=== PATIENT | female | born 1935 | race Caucasian/White ===

== ENCOUNTER 2017-07-26 08:31 | Observation (INO) | payer MEDICARE ==
[2017-07-26] VITALS (7 sets, daily range): BP systolic 119–138; BP diastolic 60–65; PULSE 65–86; RESP 16; TEMP 97.5–98.2; O2SAT 98–100
[~2017-07-26] VITALS: Ht 160 cm; Wt 48.0 kg
[2017-07-26] MEDS ORDERED: L-THPOW (09:12)
[2017-07-26] MEDS ORDERED: LEVO88TA2 PO (09:12)
[2017-07-26] MEDS ORDERED: ISTA0.5S EACH EYE (09:16)
[2017-07-26] MEDS ORDERED: CILO100T PO (09:16)
[2017-07-26] MEDS ORDERED: HYDR25TA5 PO (09:16)
[2017-07-26] MEDS ORDERED: ESTR.3 PO (09:16)
[2017-07-26] MEDS ORDERED: ATOR10TA15 PO (09:16)
[2017-07-26] MEDS ORDERED: ceFAZolin INJ 1,000 MG VIAL ONE (09:27)
[2017-07-26] MEDS ORDERED: SODIUM CHLORIDE 0.9% INJ 100 ML ONE (09:29)
[2017-07-26 09:34] LABS: AUTOMATED NEUTROPHIL # 4.7 TH/MM3 (1.8-7.7); BASOPHIL # 0.1 TH/MM3 (0-0.2); BASOPHIL % 0.8 % (0.0-2.0); EOSINOPHIL # 0.6 TH/MM3 (0-0.4); EOSINOPHIL % 7.1 % (0.0-4.0); HEMATOCRIT 43.8 % (35.0-46.0); HEMO FLAGS DIFF FINAL; LYMPH % 29.1 % (9.0-44.0); LYMPHOCYTE # 2.4 TH/MM3 (1.0-4.8); MEAN CELL VOLUME 96.9 FL (80.0-100.0); MEAN CORPUSCULAR HEMOGLOBIN 33.1 PG (27.0-34.0); MEAN CORPUSCULAR HGB CONC 34.1 % (32.0-36.0); MONO % 6.2 % (0.0-8.0); NEUT % 56.8 % (16.0-70.0); PLATELET COUNT 247 TH/MM3 (150-450); RED BLOOD COUNT 4.52 MIL/MM3 (4.00-5.30); RED CELL DISTRIBUTION WIDTH 13.3 % (11.6-17.2); WHITE BLOOD COUNT 8.2 TH/MM3 (4.0-11.0)
[2017-07-26 09:45] LABS: APTT (PATIENT) 27.3 SEC (24.3-30.1); PROTHROMBIN TIME - PATIENT 10.5 SEC (9.8-11.6)
[2017-07-26] MEDS ORDERED: SODIUM CHLORID 0.9% 500 ML IV PRN (09:45)
[2017-07-26] MEDS ORDERED: POVIDONE IODINE 5% (ANTISEPSIS KIT) 4 APPLICATIONS EACH NARE PRN (09:45)
[2017-07-26] MEDS ORDERED: INSULIN HUMAN REGULAR 1,000 UNITS/10 ML VIAL SQ PRN (09:45)
[2017-07-26] MEDS ORDERED: LACTATED RINGER'S 1000 ML IV PRN (09:45)
[2017-07-26] MEDS ORDERED: METOPROLOL TARTRATE 25 MG TAB PO PRN (09:45)
[2017-07-26] MEDS ORDERED: ceFAZolin 1,000 MG/NS 100 ML IV SCH ×2 (09:45)
[2017-07-26] MEDS ORDERED: CHLORHEXIDINE GLUCONATE 2 % 1 PACK (2 CLOTHS) TOPICAL PRN (09:45)
[2017-07-26 10:17] LABS: BICARBONATE 29.2 MEQ/L (21.0-32.0); POTASSIUM 4.7 MEQ/L (3.5-5.1)
[2017-07-26] MEDS ORDERED: HEPARIN SODIUM - IV 10,000 UNITS/10 ML VIAL ONE (11:06)
[2017-07-26] MEDS ORDERED: HEPARIN SODIUM - SQ 10,000 UNITS/ML VIAL ONE (11:06)
[2017-07-26] MEDS ORDERED: PROTAMINE SULFATE 50 MG/5 ML VIAL ONE (11:06)
[2017-07-26] MEDS ORDERED: BUPIVACAINE/EPINEPHRINE 0.25% 50 ML VIAL ONE (11:11)
[2017-07-26] MEDS ORDERED: FAMOTIDINE 20 MG/2 ML VIAL ONE (11:30)
[2017-07-26] MEDS ORDERED: DO NOT ADM ANY ANTICOAGULANT DRUGS PRN (14:13)
[2017-07-26] MEDS ORDERED: IOHEXOL IV ONE (14:15)
[2017-07-26] MEDS ORDERED: MIDAZOLAM HCL 2 MG/2 ML VIAL IV ONE (14:25)
[2017-07-26] MEDS ORDERED: ceFAZolin INJ 1,000 MG VIAL IV ONE (14:25)
[2017-07-26] MEDS ORDERED: LIDOCAINE HCL 1% PF 5 ML AMPULE OTHER ONE (14:25)
[2017-07-26] MEDS ORDERED: hydrALAZINE HCL 20 MG/ML VIAL IV ONE (14:25)
[2017-07-26] MEDS ORDERED: ePHEDrine/NS 25 MG/5 ML SYR IV ONE (14:25)
[2017-07-26] MEDS ORDERED: PROPOFOL 200 MG/20 ML AMP IV ONE (14:25)
[2017-07-26] MEDS ORDERED: LACTATED RINGER'S 1000 ML INJ 1,000 ML IV SCH (14:30)
[2017-07-26] MEDS ORDERED: CLOPIDOGREL 75 MG TAB PO ONE (14:45)
[2017-07-26] MEDS ORDERED: METOPROLOL TARTRATE 5 MG/5 ML VIAL IV PUSH PRN (14:45)
[2017-07-26] MEDS ORDERED: ONDANSETRON HCL 4 MG/2 ML VIAL IV PUSH PRN (14:45)
--- NOTE | 2017-07-26 15:19 | EKG ---
Date Performed: 07/26/2017 Time Performed: 09:42:25 PTAGE: 82 years EKG: SINUS BRADYCARDIA LEFT ATRIAL ENLARGEMENT POSSIBLE RIGHT VENTRICULAR CONDUCTION DELAY PROLO NGED QT INTERVAL ABNORMAL ECG Compared to prior tracing no significant change PREVIOUS TRACING : 12/27/2003 16.36 DOCTOR: Caesar Pete Interpretating Date/Time 07/26/2017 15:18:24
[2017-07-26] MEDS ORDERED: *ENALAPRILAT 1.25 MG/ML VIAL PERIprocedural Use ONLY ONE (15:34)
[2017-07-26] MEDS ORDERED: ENALAPRILAT 1.25 MG/ML VIAL IV PUSH ONE ×2 (16:13→17:15)
[2017-07-26] MEDS ORDERED: hydrALAZINE HCL 20 MG/ML VIAL IV PRN (18:45)
[2017-07-26] MEDS: CILOSTAZOL 100 MG TAB PO SCH (20:51)
[2017-07-26] MEDS ORDERED: ATORVASTATIN 10 MG TAB PO SCH (21:00)
--- NOTE | 2017-07-26 23:34 | MP ---
cc: SNEHA BARNES JEFFREY DATE OF SURGERY 07/26/17 PREOPERATIVE DIAGNOSIS Disabling bilateral lower extremity ischemia. POSTOPERATIVE DIAGNOSIS Disabling bilateral lower extremity ischemia. OPERATIVE PROCEDURE Right popliteal, anterior tibial and peroneal percutaneous balloon angioplasty. SURGEON Reny Barnes MD [employer] SARAH Bernal ANESTHESIA Local MAC DESCRIPTION OF PROCEDURE With the patient in the supine position and under IV sedation, the lower abdomen and both groins were prepped with Betadine and draped in a sterile fashion. One gram of Ancef was administered intravenously. Following a protocol time-out, the skin and subcutaneous tissue surrounding the right common femoral access site was preemptively infiltrated with 0.5% Marcaine with epinephrine. Utilizing ultrasound guidance, an 18 gauge needle was inserted into the right mid common femoral lumen, antegrade approach. A J-wire was advanced under fluoroscopic guidance into the proximal right SFA. A 5-Mauritian hemostatic sheath was deployed over the J-wire. Diluted contrast was injected in conjunction with digital C-arm fluoroscopic imaging with findings as follows: The right common femoral, profunda and superficial femoral arteries were widely patent with no significant stenotic disease. The above-knee popliteal were widely patent as well. The below-knee popliteal exhibited a near complete segmental occlusion immediately proximal to its bifurcation into the anterior tibial and peroneal arteries. The anterior tibial exhibited focal 60 and 80% stenoses within the proximal and mid segments. The peroneal exhibited an 80% stenosis approximately 40 mm distal to its origin. The more distal peroneal was somewhat atretic. The posterior tibial did not visualize. The short 5-Mauritian sheath was exchanged for a long 5-Mauritian sheath which was guided into the distal SFA over an advantage guidewire. The patient was heparinized with 4000 units. ACT measured 315. The popliteal and anterior tibial stenoses were navigated under fluoroscopic guidance and road mapping with a grand slam quick cross catheter combination. A grand slam wire was parked within the dorsalis pedis. A separate 0.14 advantage guidewire quick cross catheter combination was navigated across the peroneal stenosis and the guide wire parked within the distal peroneal artery. The multiple stenoses were balloon angioplastied with a 3 x 20 mm balloon inflated to 6-8 atmospheres, two separate inflations 2 minutes each at all four stenotic sites followed by balloon angioplasty of the popliteal stenosis with a 4 x 40 mm drug coated balloon inflated to 6 atmospheres, 3-minute inflation. Completion angiogram revealed complete eradication of the multiple above described stenoses with no residual stenotic disease. Flow to the foot was markedly improved. The long 5-Mauritian sheath was exchanged for a short 5-Mauritian sheath which was secured with a skin suture of 4-0 nylon. Heparin was not reversed. There were no procedure related complications. The patient returned to PACU in stable condition having tolerated procedure well. MD ANGE Jordan/ /5:10 PM /11:18 PM
[2017-07-27] VITALS (16 sets, daily range): BP systolic 120–132; BP diastolic 56–61; PULSE 64–85; RESP 14–20; TEMP 97.5–98.8; O2SAT 99–100
[2017-07-27] MEDS ORDERED: LEVOTHYROXINE SODIUM 88 MCG TAB PO SCH (06:00)
[2017-07-27] MEDS: CILOSTAZOL 100 MG TAB PO SCH (08:43)
[2017-07-27] MEDS ORDERED: HYDROCHLOROTHIAZIDE 25 MG TAB PO SCH (09:00)
[2017-07-27] MEDS ORDERED: TIMOLOL MALEATE 0.5% OPHT SOLN 5 ML BTL EACH EYE SCH (09:00)
[2017-07-27] MEDS ORDERED: ASPIRIN EC 81 MG TABEC PO SCH (09:00)
[2017-07-27] MEDS ORDERED: ESTROGENS CONJUGATED 0.3 MG TAB PO SCH (09:00)
[2017-07-28] MEDS ORDERED: CLOPIDOGREL 75 MG TAB PO SCH (09:00)
== END 2017-07-27 12:51 | disposition home health service (06) ==
LOC: HCVO 08:31 → HSDC 13:29 → HCPC 13:30
PROVIDERS: ADMIT Surgery Vascular Surgery; ATTEND Surgery Vascular Surgery
DX: I70.211 Atherosclerosis of native arteries of extremities with intermittent claudication, right leg (principal); I10 Essential (primary) hypertension; Z87.891 Personal history of nicotine dependence
CPT/HCPCS: 01440; 37224; 37228; 75710; 80048; 85025; 85347; 85610; 85730; 86850; 86900; 86901; 93005; 96374; C1725; C1769; C2623; G0378; J0360; J0690; J1644; J2250; J3010; J7120; J2720

== ENCOUNTER 2017-08-23 09:29 | Day surgery (SDC) | payer MEDICARE ==
[~2017-08-23] VITALS: Ht 160 cm; Wt 46.3 kg
[~2017-08-23 09:29] MED LIST: ATOR10TA15 PO; CILO100T PO; ESTR.3 PO; HYDR25TA5 PO; ISTA0.5S EACH EYE; LEVO88TA2 PO
[2017-08-23] MEDS ORDERED: METOPROLOL TARTRATE 25 MG TAB PO PRN (10:15)
[2017-08-23] MEDS ORDERED: LACTATED RINGER'S 1000 ML IV PRN (10:15)
[2017-08-23] MEDS ORDERED: SODIUM CHLORID 0.9% 500 ML IV PRN (10:15)
[2017-08-23] MEDS ORDERED: POVIDONE IODINE 5% (ANTISEPSIS KIT) 4 APPLICATIONS EACH NARE PRN (10:15)
[2017-08-23] MEDS ORDERED: CHLORHEXIDINE GLUCONATE 2 % 1 PACK (2 CLOTHS) TOPICAL PRN (10:15)
[2017-08-23] MEDS ORDERED: ceFAZolin 1,000 MG/NS 100 ML IV SCH ×2 (10:15)
[2017-08-23 10:34] LABS: AUTOMATED NEUTROPHIL # 4.6 TH/MM3 (1.8-7.7); BASOPHIL # 0.1 TH/MM3 (0-0.2); EOSINOPHIL # 0.6 TH/MM3 (0-0.4); EOSINOPHIL % 7.5 % (0.0-4.0); HEMATOCRIT 41.7 % (35.0-46.0); HEMO FLAGS DIFF FINAL; LYMPHOCYTE # 2.5 TH/MM3 (1.0-4.8); MEAN CORPUSCULAR HEMOGLOBIN 33.9 PG (27.0-34.0); MEAN CORPUSCULAR HGB CONC 34.6 % (32.0-36.0); MONO % 5.6 % (0.0-8.0); NEUT % 55.9 % (16.0-70.0); PLATELET COUNT 223 TH/MM3 (150-450); RED BLOOD COUNT 4.25 MIL/MM3 (4.00-5.30); RED CELL DISTRIBUTION WIDTH 13.2 % (11.6-17.2); WHITE BLOOD COUNT 8.3 TH/MM3 (4.0-11.0)
[2017-08-23 10:48] LABS: APTT (PATIENT) 27.6 SEC (24.3-30.1); PROTHROMBIN TIME - PATIENT 10.9 SEC (9.8-11.6)
[2017-08-23 10:55] LABS: BICARBONATE 26.9 MEQ/L (21.0-32.0); POTASSIUM 4.1 MEQ/L (3.5-5.1)
[2017-08-23] MEDS ORDERED: PROPOFOL 200 MG/20 ML AMP IV ONE (12:00)
[2017-08-23] MEDS ORDERED: ePHEDrine/NS 25 MG/5 ML SYR IV ONE (12:00)
[2017-08-23] MEDS ORDERED: HEPARIN SODIUM - SQ 10,000 UNITS/ML VIAL ONE (13:03)
[2017-08-23] MEDS ORDERED: PROTAMINE SULFATE 50 MG/5 ML VIAL ONE ×2 (13:03→16:39)
[2017-08-23] MEDS ORDERED: BUPIVACAINE/EPINEPHRINE 0.5% PF 30 ML VIAL ONE (13:04)
[2017-08-23] MEDS ORDERED: HEPARIN SODIUM - IV 10,000 UNITS/10 ML VIAL ONE (13:25)
[2017-08-23] MEDS ORDERED: PROPOFOL 200 MG/20 ML AMP ONE (14:50)
[2017-08-23] MEDS ORDERED: DO NOT ADM ANY ANTICOAGULANT DRUGS PRN (15:27)
[2017-08-23] MEDS ORDERED: SODIUM CHLORIDE 0.9% FLUSH 10 ML FLUSH IV FLUSH PRN ×2 (16:15)
[2017-08-23] MEDS ORDERED: LACTATED RINGER'S 1000 ML INJ 1,000 ML IV SCH (16:15)
[2017-08-23] MEDS ORDERED: ONDANSETRON HCL 4 MG/2 ML VIAL IV PUSH PRN (16:15)
[2017-08-23] MEDS ORDERED: *ENALAPRILAT 1.25 MG/ML VIAL PERIprocedural Use ONLY ONE (17:06)
[2017-08-23] MEDS ORDERED: *LABETALOL HCL 100 MG/20 ML VIAL PERIprocedural Use ONLY ONE (17:47)
--- NOTE | 2017-08-23 19:00 | MP ---
cc: SNEHA BARNES DATE OF SURGERY: 08/23/2017 PREOPERATIVE DIAGNOSIS: Disabling left lower extremity ischemia. POSTOPERATIVE DIAGNOSIS: Disabling left lower extremity ischemia. PROCEDURE Left superficial femoral and anterior tibial percutaneous balloon angioplasty. SURGEON: Sneha Barnes MD. CLOTH BALE HEADER: SARAH Varela. ANESTHESIA Local MAC DESCRIPTION OF OPERATIVE PROCEDURE: With the patient in the supine position IV sedation was induced, the lower abdomen, both groins and thighs prepped with Betadine and draped in a sterile fashion. One gram of Ancef was administered intravenously and following a protocol time-out, the skin and subcutaneous tissue surrounding the proposed left common femoral access site was preemptively infiltrated with 0.5% Marcaine with epinephrine. An 18 gauge needle was inserted under ultrasound guidance into the left mid common femoral lumen, antegrade approach. A J-wire was advanced under fluoroscopic guidance into the superficial femoral artery. A 5-Japanese hemostatic sheath was deployed over the J-wire. Diluted contrast was injected via the sheath in conjunction with digital C-arm fluoroscopic imaging. This reconfirmed a focal, near-complete occlusion of the SFA at the mid thigh level. Also, several high grade segmental stenotic lesions were identified within the proximal anterior tibia. The anterior tibia below the stenotic lesion provided essentially single vessel runoff to the left foot, the posterior tibial being occluded throughout and the peroneal occluding at the mid calf level. The posterior tibial did reconstitute at the medial malleolus level. The patient was systemically heparinized with 4000 units an ACT measured 313. The SFA and anterior tibial stenoses were navigated with an Advantage guidewire Quickcross catheter combination. A Grand Slam guidewire was then exchanged and parked within the distal anterior tibial. Balloon angioplasty of the anterior tibial stenoses was accomplished with a 2 x 40 mm balloon inflated to 8 atmospheres, two separate inflations of two minutes each. The SFA stenosis was treated with a 4 x 40 mm balloon inflated to 8 atmospheres, two separate inflations followed by treatment with a 6 x 60 Lutonix Drug Coated Balloon inflated to 4 atmospheres, atmospheres, 3-minute inflation. Completion angiogram revealed no residual stenotic disease at the SFA or anterior tibial treatment level. Flow was much improved via the distal SFA, anterior tibial into the left foot. Heparin was not reversed. The sheath was secured with a skin suture and sterile dressing applied. At the completion of the procedure Doppler flow was robust, biphasic within the distal anterior tibial. The patient returned to the recovery room in stable condition having tolerated procedure well. MD ANGE Jordan/TRACIE /3:47 PM /6:53 PM
[2017-08-23] MEDS ORDERED: ASPI-516 PO (19:01)
[2017-08-23] MEDS ORDERED: *morphine SULFATE 8 MG/ML PERIprocedure ONLY ONE (20:10)
[2017-08-23 21:56] VITALS: BP 146/62; PULSE 72; RESP 16; TEMP 97.6; O2SAT 94
[2017-08-24] MEDS ORDERED: ASPIRIN 81 MG CHEW TAB PO SCH (09:00)
== END 2017-08-23 22:13 | disposition home or self-care (01) ==
LOC: HSDC 09:29
PROVIDERS: ATTEND Surgery Vascular Surgery
DX: I70.212 Atherosclerosis of native arteries of extremities with intermittent claudication, left leg (principal); I10 Essential (primary) hypertension; J44.9 Chronic obstructive pulmonary disease, unspecified; Z79.01 Long term (current) use of anticoagulants
CPT/HCPCS: 01270; 37224; 37228; 76937; 80048; 85025; 85347; 85610; 85730; 86850; 86900; 86901; C1725; C1769; C2623; J0690; J1644; J2270; J2720; J3010; J7120